=== PATIENT | female | born 1975 | race Caucasian/White ===

== ENCOUNTER 2019-11-10 11:58 | Day surgery (SDC) | payer OTHER ==
[~2019-11-10 11:58] MED LIST: AMITIZA8 MCG PO; SYNTHROID100 MCG PO
[2019-11-10] MEDS ORDERED: NEURONTIN300 MG PO (12:54)
[2019-11-10] MEDS ORDERED: COLACE100 MG PO (12:54)
[2019-11-10] MEDS ORDERED: PERCOCET 5-3251 EACH PO (12:54)
== END 2019-11-10 18:35 | disposition home or self-care (01) ==
LOC: CIR.AMB 11:58
PROVIDERS: ATTEND Surgery
DX: K64.8 Other hemorrhoids (principal); K64.4 Residual hemorrhoidal skin tags; Z20.828 Contact with and (suspected) exposure to other viral communicable diseases